=== PATIENT | female | born 1965 | race Caucasian/White ===

== ENCOUNTER 2017-03-10 13:36 | Emergency (ER) | payer OTHER ==
--- NOTE | 2017-03-10 14:31 | ED CLINICAL REPORT ---
Clinical Report - Physicians/Mid Levels [facility] [address] [place] [address] 03/10/2017 13:38 [id number] Time Seen: 13:53 Mar 10 2017. Arrived- By private vehicle. Historian- patient. HISTORY OF PRESENT ILLNESS Chief Complaint: ALLERGIC REACTION. This started just prior to arrival and is still present. The patient has had a skin rash, itching and swelling but not had trouble swallowing. No difficulty breathing. A cause has been identified. 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 Patient took 50 mg of Benadryl prior to arrival. Patient reports history of anaphylaxis. Reports some lip swelling prior to arrival, researches subsiding. Denies any pruritic sensation. Denies difficulty breathing or shortness of breath. Denies any rash that she has noted. Patient drove himself here.). REVIEW OF SYSTEMS No eye problems, cough or fever. All systems otherwise negative, except as recorded above. PAST HISTORY Problems: Asthma. Hypertension. Allergies. Additional Surgeries: no known surgeries. Medications: Epinephrine Injection (). Albuterol Sulfate Inhalation, PRN. Vafirlukast 20 mg, daily. Pravastatin Sodium Oral (Tablet 40 mg) 1 tablet, daily. Pantoprazole Sodium Oral 20 mg, daily. Losartan Potassium Oral 50 mg, daily. Control Pills. Flovent HFA Inhalation 220 mcg. Allergies: No Known Drug Allergy. Tree nuts. SOCIAL HISTORY Never smoker. Alcohol use. No drug use. ADDITIONAL NOTES The nursing notes have been reviewed. PHYSICAL EXAM Vital Signs: 03/10/2017 13:37 BP: 146/94. HR: 99. RR: 18. O2 saturation: 99%. Temp: 98.6 F. Pain level now: 0/10. Appearance: Alert. No acute distress. No apparent distress. Does not appear to be anxious. Eyes: Pupils equal, round and reactive to light. ENT: Voice normal. No muffled or hoarse voice, pharyngeal erythema or nasal discharge. Normal ear exam. Neck: Neck supple. No lymphadenopathy. CVS: Normal heart rate and rhythm. Heart sounds normal. Respiratory: No respiratory distress. Skin: Skin warm. Erythema. Skin: Urticaria (right flank 6 by 6 cm). Neuro: Oriented X 3. PROGRESS AND PROCEDURES Course of Care: Patient is here in the emergency department with resolution of her symptoms, no new swelling, no facial edema. Patient very stable, to f/u outpatient. NO angioedema/ no further hives. No swelling. No wheezing. Given pepcid 40 mg po and dexamethaseon 6 mg po. 03/10/2017 13:37 BP: 146/94. HR: 99. RR: 18. O2 saturation: 99%. Temp: 98.6 F. Pain level now: 0/10. Patient is stable. Physical exam findings are improved. Symptoms better. Patient/family counseled. Disposition: Discharged. CLINICAL IMPRESSION Generalized allergic reaction secondary to food. Clinical picture does not suggest respiratory distress or laryngeal edema. INSTRUCTIONS (avoid nuts). Warnings: Further evaluation is necessary. Follow-up: Follow up with your doctor as needed. (Electronically signed by Olga Lidia Millan P.A.-C 03/10/2017 14:40)
--- NOTE | 2017-03-10 14:31 | ED ORDER SUMMARY ---
..... Patient: DOMINGUEZ CHAMPAGNE OrderSheet [facility] VisitID: [id number] [address] [place] [address] 51y, F Registration Date/Time: 03/10/2017 ORDER SHEET Weight: 98.4 kg (stated) Allergies: Tree nuts, No Known Drug Allergy GENERAL ORDERS: MEDICATION ORDERS: Dexamethasone PO 6 mg (NOW) (13:50 03/10/2017 EKanthonylekatharine P.A.-C) (Ack 13:53 Jace R.N.) (13:58 Jace R.N.) Pepcid PO 40 mg (NOW) (13:50 03/10/2017 Jhoanaleva P.A.-C) (Ack 13:53 Jace R.N.) (13:58 Jace R.N.) IV FLUIDS: ORDER SHEET NOTES: [Electronically signed by Olga Lidia MillanASandra (14:40 03/10/2017)] [Electronically signed by Grazyna Wyatt R.N. (17:04 03/10/2017)] [Electronically locked/signed by Grazyna Wyatt R.N. (17:04 03/10/2017)]
--- NOTE | 2017-03-10 14:31 | ED NURSING NOTES ---
Clinical Report - Nurses [place] [address] [place] [address] 03/10/2017 13:38 [id number] TRI[facility] Triage time 13:37. Acuity: LEVEL 3. Chief Complaint: POSSIBLE ALLERGIC REACTION. Alert. No acute distress. ARASELI COMA SCORE: Araseli Coma Scale: 15- eyes open spontaneously (4); best verbal response- oriented x 4 (5); best motor response- obeys commands (6). --13:50 Grazyna Wyatt R.N. 13:37 03/10/17. BP: 146/94. HR: 99. RR: 18. O2 saturation: 99% on room air. Temp: 98.6 F (oral). Pain level now: 0/10. --13:50 Grazyna Wyatt R.N. Weight: 98.4 kg stated. Height/Length: 63 inches Per Patient. BMI: 38.4. --13:45 Grazyna Wyatt R.N. Medications Control Pills. Flovent HFA Inhalation 220 mcg. --13:46 Grazyna Wyatt R.N. Losartan Potassium Oral 50 mg, daily. --13:47 Grazyna Wyatt R.N. Pantoprazole Sodium Oral 20 mg, daily. --13:47 Grazyna Wyatt R.N. Pravastatin Sodium Oral (Tablet 40 mg) 1 tablet, daily. --13:47 Grazyna Wyatt R.N. Vafirlukast 20 mg, daily. --13:48 Grazyna Wyatt R.N. Albuterol Sulfate Inhalation, PRN. --13:48 Grazyna Wyatt R.N. Epinephrine Injection (). --13:49 Grazyna Wyatt R.N. Allergies Tree nuts. --13:41 Grazyna Wyatt R.N. No Known Drug Allergy. --13:41 Grazyna Wyatt R.N. History Arrived by private vehicle. Historian: patient. Unaccompanied. Primary physician (Linda). This started just prior to arrival. ( is tree nut allergic, ate a protein bar with cashews, upper lip swelling). She has had swelling- upper lip. 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 (50 mg po). PAST MEDICAL HX: Last normal menstrual period- February 2017. SOCIAL HX: Never smoker. Occasional alcohol use. No drug use. FALL RISK ASSESSMENT: Fall risk assessment completed. No fall risk identified. FUNCTIONAL ASSESSMENT: Functional assessment: no impairments noted. LEARNING NEEDS ASSESSMENT: The learning needs assessment revealed no barriers. --13:50 Grazyna Wyatt R.N. PROBLEMS: Hypertension. Asthma. Allergies. --13:44 Grazyna Wyatt R.N. ADDITIONAL SURGERIES: no known surgeries. Assessment GENERAL / NEURO / PSYCH: Alert. Oriented X 4. Appears in no acute distress. Patient appears calm and cooperative. RESPIRATORY: Respirations not labored. SKIN: Skin is warm and dry. --13:50 Grazyna Wyatt R.N. Interventions ID band on patient. To treatment room. --13:50 Grazyna Wyatt R.N. PHYSICAL ASSESSMENT 13:59 03/10/17. Ambulatory to room. GENERAL / NEURO / PSYCH: Alert. The patient does not appear to be in acute distress. Oriented X 4. RESPIRATORY: Respirations not labored. SKIN: Skin is warm and dry. Swelling present- upper lip. --13:59 Grazyna Wyatt R.N. NURSING PROGRESS NOTES 13:58 03/10/2017 Dexamethasone (Dexamethasone) PO Tablets 6 mg given. Allergies verified and confirmed 5 rights. --13:58 Grazyna Wyatt R.N. 13:58 03/10/2017 Pepcid (Famotidine) PO Tablets 40 mg given. Allergies verified and confirmed 5 rights. --13:58 Grazyna Wyatt R.N. 13:59 03/10/17. Pulse oximeter and NIBP monitor placed on patient. Head of bed elevated. Call light placed in reach. Side rails up x 1. Bed placed in lowest position. Brakes of bed on. --13:59 Grazyna Wyatt R.N. 14:17 03/10/17. The patient is calm and resting quietly. Overall patient status is the same- she states feels better. RESPIRATORY: No respiratory distress. SKIN: Skin is warm and dry. --14:17 Grazyna Wyatt R.N. 14:30. The patient is calm and resting quietly. Overall patient status is improved- she states feels better (pt verbalizes feeling better, upper lip no longer tingling). RESPIRATORY: No respiratory distress. SKIN: Skin is warm and dry. --17:03 Grazyna Wyatt R.N. DISPOSITION / DISCHARGE Departure time: 1430. Condition at departure: improved. No learning barriers present. Discharge instructions provided and reviewed with the patient. Patient verbalized understanding. Written instructions provided in Ukrainian. The patient was discharged home and unaccompanied at time of discharge. She left the Emergency Department ambulatory and via private vehicle. FALL RISK ASSESSMENT: Fall risk assessment completed. No fall risk identified. --17:04 Grazyna Wyatt R.N. 14:30 03/10/17. BP: 131/96. HR: 98. RR: 18. O2 saturation: 95% on room air. --17:04 Grazyna Wyatt R.N. Locked/Released at 03/10/2017 17:04 by Grazyna Wyatt R.N.
--- NOTE | 2017-03-10 14:31 | ED ORDER SUMMARY ---
..... Patient: DOMINGUEZ CHAMPAGNE OrderSheet [facility] VisitID: [id number] [address] [place] [address] 51y, F Registration Date/Time: 03/10/2017 ORDER SHEET Weight: 98.4 kg (stated) Allergies: Tree nuts, No Known Drug Allergy GENERAL ORDERS: MEDICATION ORDERS: Dexamethasone PO 6 mg (NOW) (13:50 03/10/2017 EKanthonylekatharine P.A.-C) (Ack 13:53 Jace R.N.) (13:58 Jace R.N.) Pepcid PO 40 mg (NOW) (13:50 03/10/2017 Jhoanaleva P.A.-C) (Ack 13:53 Jace R.N.) (13:58 Jace R.N.) IV FLUIDS: ORDER SHEET NOTES: [Electronically signed by Olga Lidia MillanASandra (14:40 03/10/2017)] [Electronically signed by Grazyna Wyatt R.N. (17:04 03/10/2017)] [Electronically locked/signed by Grazyna Wyatt R.N. (17:04 03/10/2017)]
--- NOTE | 2017-03-10 14:31 | ED NURSING NOTES ---
Clinical Report - Nurses [place] [address] [place] [address] 03/10/2017 13:38 [id number] TRI[facility] Triage time 13:37. Acuity: LEVEL 3. Chief Complaint: POSSIBLE ALLERGIC REACTION. Alert. No acute distress. ARASELI COMA SCORE: Araseli Coma Scale: 15- eyes open spontaneously (4); best verbal response- oriented x 4 (5); best motor response- obeys commands (6). --13:50 Grazyna Wyatt R.N. 13:37 03/10/17. BP: 146/94. HR: 99. RR: 18. O2 saturation: 99% on room air. Temp: 98.6 F (oral). Pain level now: 0/10. --13:50 Grazyna Wyatt R.N. Weight: 98.4 kg stated. Height/Length: 63 inches Per Patient. BMI: 38.4. --13:45 Grazyna Wyatt R.N. Medications Control Pills. Flovent HFA Inhalation 220 mcg. --13:46 Grazyna Wyatt R.N. Losartan Potassium Oral 50 mg, daily. --13:47 Grazyna Wyatt R.N. Pantoprazole Sodium Oral 20 mg, daily. --13:47 Grazyna Wyatt R.N. Pravastatin Sodium Oral (Tablet 40 mg) 1 tablet, daily. --13:47 Grazyna Wyatt R.N. Vafirlukast 20 mg, daily. --13:48 Grazyna Wyatt R.N. Albuterol Sulfate Inhalation, PRN. --13:48 Grazyna Wyatt R.N. Epinephrine Injection (). --13:49 Grazyna Wyatt R.N. Allergies Tree nuts. --13:41 Grazyna Wyatt R.N. No Known Drug Allergy. --13:41 Garzyna Wyatt R.N. History Arrived by private vehicle. Historian: patient. Unaccompanied. Primary physician (Linda). This started just prior to arrival. ( is tree nut allergic, ate a protein bar with cashews, upper lip swelling). She has had swelling- upper lip. 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 (50 mg po). PAST MEDICAL HX: Last normal menstrual period- February 2017. SOCIAL HX: Never smoker. Occasional alcohol use. No drug use. FALL RISK ASSESSMENT: Fall risk assessment completed. No fall risk identified. FUNCTIONAL ASSESSMENT: Functional assessment: no impairments noted. LEARNING NEEDS ASSESSMENT: The learning needs assessment revealed no barriers. --13:50 Grazyna Wyatt R.N. PROBLEMS: Hypertension. Asthma. Allergies. --13:44 Grazyna Wyatt R.N. ADDITIONAL SURGERIES: no known surgeries. Assessment GENERAL / NEURO / PSYCH: Alert. Oriented X 4. Appears in no acute distress. Patient appears calm and cooperative. RESPIRATORY: Respirations not labored. SKIN: Skin is warm and dry. --13:50 Grazyna Wyatt R.N. Interventions ID band on patient. To treatment room. --13:50 Grazyna Wyatt R.N. PHYSICAL ASSESSMENT 13:59 03/10/17. Ambulatory to room. GENERAL / NEURO / PSYCH: Alert. The patient does not appear to be in acute distress. Oriented X 4. RESPIRATORY: Respirations not labored. SKIN: Skin is warm and dry. Swelling present- upper lip. --13:59 Grazyna Wyatt R.N. NURSING PROGRESS NOTES 13:58 03/10/2017 Dexamethasone (Dexamethasone) PO Tablets 6 mg given. Allergies verified and confirmed 5 rights. --13:58 Grazyna Wyatt R.N. 13:58 03/10/2017 Pepcid (Famotidine) PO Tablets 40 mg given. Allergies verified and confirmed 5 rights. --13:58 Grazyna Wyatt R.N. 13:59 03/10/17. Pulse oximeter and NIBP monitor placed on patient. Head of bed elevated. Call light placed in reach. Side rails up x 1. Bed placed in lowest position. Brakes of bed on. --13:59 Grazyna Wyatt R.N. 14:17 03/10/17. The patient is calm and resting quietly. Overall patient status is the same- she states feels better. RESPIRATORY: No respiratory distress. SKIN: Skin is warm and dry. --14:17 Graznya Wyatt R.N. 14:30. The patient is calm and resting quietly. Overall patient status is improved- she states feels better (pt verbalizes feeling better, upper lip no longer tingling). RESPIRATORY: No respiratory distress. SKIN: Skin is warm and dry. --17:03 Grazyna Wyatt R.N. DISPOSITION / DISCHARGE Departure time: 1430. Condition at departure: improved. No learning barriers present. Discharge instructions provided and reviewed with the patient. Patient verbalized understanding. Written instructions provided in Estonian. The patient was discharged home and unaccompanied at time of discharge. She left the Emergency Department ambulatory and via private vehicle. FALL RISK ASSESSMENT: Fall risk assessment completed. No fall risk identified. --17:04 Grazyna Wyatt R.N. 14:30 03/10/17. BP: 131/96. HR: 98. RR: 18. O2 saturation: 95% on room air. --17:04 Grazyna Wyatt R.N. Locked/Released at 03/10/2017 17:04 by Grazyna Wyatt R.N.
--- NOTE | 2017-03-10 14:31 | ED CLINICAL REPORT ---
Clinical Report - Physicians/Mid Levels [facility] [address] [place] [address] 03/10/2017 13:38 [id number] Time Seen: 13:53 Mar 10 2017. Arrived- By private vehicle. Historian- patient. HISTORY OF PRESENT ILLNESS Chief Complaint: ALLERGIC REACTION. This started just prior to arrival and is still present. The patient has had a skin rash, itching and swelling but not had trouble swallowing. No difficulty breathing. A cause has been identified. 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 Patient took 50 mg of Benadryl prior to arrival. Patient reports history of anaphylaxis. Reports some lip swelling prior to arrival, researches subsiding. Denies any pruritic sensation. Denies difficulty breathing or shortness of breath. Denies any rash that she has noted. Patient drove himself here.). REVIEW OF SYSTEMS No eye problems, cough or fever. All systems otherwise negative, except as recorded above. PAST HISTORY Problems: Asthma. Hypertension. Allergies. Additional Surgeries: no known surgeries. Medications: Epinephrine Injection (). Albuterol Sulfate Inhalation, PRN. Vafirlukast 20 mg, daily. Pravastatin Sodium Oral (Tablet 40 mg) 1 tablet, daily. Pantoprazole Sodium Oral 20 mg, daily. Losartan Potassium Oral 50 mg, daily. Control Pills. Flovent HFA Inhalation 220 mcg. Allergies: No Known Drug Allergy. Tree nuts. SOCIAL HISTORY Never smoker. Alcohol use. No drug use. ADDITIONAL NOTES The nursing notes have been reviewed. PHYSICAL EXAM Vital Signs: 03/10/2017 13:37 BP: 146/94. HR: 99. RR: 18. O2 saturation: 99%. Temp: 98.6 F. Pain level now: 0/10. Appearance: Alert. No acute distress. No apparent distress. Does not appear to be anxious. Eyes: Pupils equal, round and reactive to light. ENT: Voice normal. No muffled or hoarse voice, pharyngeal erythema or nasal discharge. Normal ear exam. Neck: Neck supple. No lymphadenopathy. CVS: Normal heart rate and rhythm. Heart sounds normal. Respiratory: No respiratory distress. Skin: Skin warm. Erythema. Skin: Urticaria (right flank 6 by 6 cm). Neuro: Oriented X 3. PROGRESS AND PROCEDURES Course of Care: Patient is here in the emergency department with resolution of her symptoms, no new swelling, no facial edema. Patient very stable, to f/u outpatient. NO angioedema/ no further hives. No swelling. No wheezing. Given pepcid 40 mg po and dexamethaseon 6 mg po. 03/10/2017 13:37 BP: 146/94. HR: 99. RR: 18. O2 saturation: 99%. Temp: 98.6 F. Pain level now: 0/10. Patient is stable. Physical exam findings are improved. Symptoms better. Patient/family counseled. Disposition: Discharged. CLINICAL IMPRESSION Generalized allergic reaction secondary to food. Clinical picture does not suggest respiratory distress or laryngeal edema. INSTRUCTIONS (avoid nuts). Warnings: Further evaluation is necessary. Follow-up: Follow up with your doctor as needed. (Electronically signed by Olga Lidia Millan P.A.-C 03/10/2017 14:40)
--- NOTE | 2017-03-10 17:04 | ED MED RECONCILIATION SUMMARY ---
Patient: DOMINGUEZ CHAMPAGNE Medication Reconciliation Report [facility] VisitID: [id number] [address] [place] [address] 51y, F Registration Date/Time: 03/10/2017 Weight: 98.4 kg Height/Length: 63 in. BMI: 38.4 ALLERGIES: No Known Drug Allergy, Tree nuts The patient's Home Medications are listed below: THE FOLLOWING MEDICATIONS NEED TO BE RECONCILED: Albuterol Sulfate Inhalation, PRN Control Pills Epinephrine Injection, Flovent HFA Inhalation 220 mcg Losartan Potassium Oral 50 mg, daily Pantoprazole Sodium Oral 20 mg, daily Pravastatin Sodium Oral (40 mg) 1 tablet, daily Vafirlukast 20 mg, daily The source(s) of the original Home Medication information: Not obtained. The following Medications were given to the patient in the Emergency Department: Dexamethasone [PO] PO 6 mg, administered: 03/10/2017 1:58:00 PM Pepcid [PO] PO 40 mg, administered: 03/10/2017 1:58:00 PM The following Medications were prescribed to the patient: None.
--- NOTE | 2017-03-10 17:04 | ED DISCHARGE INSTRUCTIONS ---
Patient: DOMINGUEZ CHAMPAGNE General Instructions [facility] VisitID: [id number] [place] [address] 51y, F Registration Date/Time: 03/10/2017 Generalized allergic reaction secondary to food. INSTRUCTIONS (avoid nuts). Warnings: Further evaluation is necessary. Follow-up: Follow up with your doctor as needed. ADDITIONAL INFORMATION Allergic Reaction,Generalized [Other] You are having an allergic reaction. This may cause an itchy rash, dizziness, fainting, trouble breathing or swallowing, and swelling of the face or other parts of the body. This can be caused by exposure to something in your surroundings that you have become sensitive to. This could be due to medicine or food. This could also be due to something you put on your skin or in your hair or something in the air. Often it is not possible to find out exactly what has caused your reaction. The goal of today's treatment is to relieve symptoms. The rash will usually fade over several days, but can sometimes last up to two weeks. Home Care: 1) If you know what you are allergic to, avoid it because future reactions could be worse than this one. 2) Avoid tight clothing and anything that heats up your skin (hot showers/baths, direct sunlight) since heat will make itching worse. 3) An ice pack will relieve local areas of intense itching and redness. Lanacaine cream or Solarcaine spray (or other product containing "benzocaine", available without a prescription) will reduce the itching. 4) Oral Benadryl (diphenhydramine) is an antihistamine available at drug and grocery stores. Unless a prescription antihistamine was given, Benadryl may be used to reduce itching if large areas of the skin are involved. Use lower doses during the daytime and higher doses at bedtime since the drug may make you sleepy. [NOTE: Do not use Benadryl if you have glaucoma or if you are a man with trouble urinating due to an enlarged prostate.] Claritin (loratidine) is an antihistamine that causes less drowsiness and is a good alternative for daytime use. Follow Up Follow Up with your doctor or this facility in two days if your symptoms do not continue to improve. If you had a severe reaction today, or if you have had several mild-moderate allergic reactions in the past, ask your doctor about allergy testing to find out what you are allergic to. If your reaction included dizziness, fainting or trouble breathing or swallowing, ask your doctor about carrying an Allergy Kit (injectable epinephrine) for home use. Get Prompt Medical Attention if any of the following occur: -- Trouble breathing or swallowing -- New or worse swelling in the face, eyelids, lips, mouth, tongue or throat -- Dizziness, weakness or fainting You have been given the following additional information: Allergic Reaction, Other (General) (Electronically signed by Olga Lidia Millan P.A.-C 03/10/2017 14:40)
--- NOTE | 2017-03-10 17:04 | ED MAR SUMMARY ---
..... Medication Administration Record [facility] [address] [place] [address] Patient: DOMINGUEZ CHAMPAGNE Visit ID: [id number] 51y, F Weight: 98.4 kg Height/Length: 63 in BMI: 38.4 ALLERGIES: No Known Drug Allergy, Tree nuts Given 03/10/2017 Grazyna Wyatt, RBrielleN. Medication Administered: DEXAMETHASONE [PO] (DEXAMETHASONE), Dose: 6 mg Tablets PO. Medication Ordered: Dexamethasone PO 6 mg (NOW). Given :03/10/2017 Grazyna Wyatt, R.N. Medication Administered: PEPCID [PO] (FAMOTIDINE), Dose: 40 mg Tablets PO. Medication Ordered: Pepcid PO 40 mg (NOW).
--- NOTE | 2017-03-10 17:04 | ED MED RECONCILIATION SUMMARY ---
Patient: DOMINGUEZ CHAMPAGNE Medication Reconciliation Report [facility] VisitID: [id number] [address] [place] [address] 51y, F Registration Date/Time: 03/10/2017 Weight: 98.4 kg Height/Length: 63 in. BMI: 38.4 ALLERGIES: No Known Drug Allergy, Tree nuts The patient's Home Medications are listed below: THE FOLLOWING MEDICATIONS NEED TO BE RECONCILED: Albuterol Sulfate Inhalation, PRN Control Pills Epinephrine Injection, Flovent HFA Inhalation 220 mcg Losartan Potassium Oral 50 mg, daily Pantoprazole Sodium Oral 20 mg, daily Pravastatin Sodium Oral (40 mg) 1 tablet, daily Vafirlukast 20 mg, daily The source(s) of the original Home Medication information: Not obtained. The following Medications were given to the patient in the Emergency Department: Dexamethasone [PO] PO 6 mg, administered: 03/10/2017 1:58:00 PM Pepcid [PO] PO 40 mg, administered: 03/10/2017 1:58:00 PM The following Medications were prescribed to the patient: None.
--- NOTE | 2017-03-10 17:04 | ED MAR SUMMARY ---
..... Medication Administration Record [facility] [address] [place] [address] Patient: DOMINGUEZ CHAMPAGNE Visit ID: [id number] 51y, F Weight: 98.4 kg Height/Length: 63 in BMI: 38.4 ALLERGIES: No Known Drug Allergy, Tree nuts Given 03/10/2017 Grazyna Wyatt, RBrielleN. Medication Administered: DEXAMETHASONE [PO] (DEXAMETHASONE), Dose: 6 mg Tablets PO. Medication Ordered: Dexamethasone PO 6 mg (NOW). Given :03/10/2017 Grazyna Wyatt, R.N. Medication Administered: PEPCID [PO] (FAMOTIDINE), Dose: 40 mg Tablets PO. Medication Ordered: Pepcid PO 40 mg (NOW).
== END 2017-03-10 14:30 | disposition home or self-care (01) ==
LOC: ED SRH 13:36
DX: T78.1XXA Other adverse food reactions, not elsewhere classified, initial encounter (principal); L27.2 Dermatitis due to ingested food; X58.XXXA Exposure to other specified factors, initial encounter; J45.909 Unspecified asthma, uncomplicated; I10 Essential (primary) hypertension; Z79.51 Long term (current) use of inhaled steroids; Z79.899 Other long term (current) drug therapy